=== PATIENT | female | born 1955 | race Caucasian/White ===

== ENCOUNTER 2017-04-08 19:37 | Emergency (ER) | payer OTHER ==
[~2017-04-08 19:37] MED LIST: ATOR40TA16 PO; CEPH-460 PO; HYDR-3583 PO; LEVO175T2 PO; MICO2CRE34 TOPICAL; MUPI2%T TOPICAL; PHENO60 PO; SPIR50TA PO; TIMO0.5S30 EACH EYE; WARF-22 PO
[2017-04-08 19:43] VITALS: PULSE 70; RESP 20; TEMP 97.6; O2SAT 100
[2017-04-08] MEDS ORDERED: CLIN1CAP5 PO (20:12)
--- NOTE | 2017-04-08 20:12 | PD ---
HPI Chief Complaint: Skin Problem Time Seen by Provider: 19:58 Travel History International Travel<30 days: No Contact w/Intl Traveler<30days: No Traveled to known affect area: No History of Present Illness HPI 61-year-old female complains of pain and swelling and redness right big toe. Patient has history of right big toe toenail fungus infection. Patient states that she started having increasing redness swelling tenderness of the right big toe for the past several days. Patient denies any fever chills. Patient denies any injury to the area. Patient states that she is not up-to-date with TD booster. Patient has history of mechanical mitral valve replacement and on Coumadin. PFSH Past Medical History Hx Anticoagulant Therapy: Yes (WARFARIN) Arthritis: No Asthma: No Blood Disorders: No Anxiety: Yes Depression: Yes Heart Rhythm Problems: No Cancer: Yes (BASAL CELL CARCINOMA LEFT NARES) Cardiovascular Problems: Yes (CHOL) High Cholesterol: No Chemotherapy: No Chest Pain: No Congestive Heart Failure: Yes COPD: No Cerebrovascular Accident: Yes (CVA) Diabetes: No Diminished Hearing: No Endocrine: No Gastrointestinal Disorders: No GERD: No Glaucoma: No Genitourinary: No Headaches: No Hepatitis: No Hiatal Hernia: Yes Hypertension: Yes Immune Disorder: No Musculoskeletal: Yes Neurologic: Yes Psychiatric: Yes Respiratory: No Integumentary: No Myocardial Infarction: No Radiation Therapy: No Renal Failure: No Seizures: Yes Sickle Cell Disease: No Sleep Apnea: No Thyroid Disease: Yes Ulcer: No Menopausal: Yes : 3 Para: 3 Past Surgical History Abdominal Surgery: No AICD: No Cardiac Surgery: Yes (VALVE REPLACEMENT) Ear Surgery: No Endocrine Surgery: No Eye Surgery: No Genitourinary Surgery: Yes (KIDNEY STONES 2002) Gynecologic Surgery: No Neurologic Surgery: No Oral Surgery: No Thoracic Surgery: No Other Surgery: Yes Social History Alcohol Use: No Tobacco Use: No Substance Use: No Allergies-Medications (Allergen,Severity, Reaction): Coded Allergies: Augmentin (Verified Allergy, Severe, 09/16/16) Codeine (Verified Allergy, Severe, Hives, 09/16/16) Erythromycin (Verified Allergy, Intermediate, RASH, 09/16/16) Reported Meds & Prescriptions Reported Meds & Active Scripts Active Bactroban Topical (Mupirocin) 2 % Cream 1 Applic TOPICAL BID Keflex (Cephalexin) 500 Mg Cap 500 Mg PO Q6H 7 Days Miconazole Topical 2% Cream 1 Applic TOPICAL BID 14 Days Reported Timolol Opth Drops 0.5 % Soln 1 Drop EACH EYE BID Hydrocodone-Acetaminophen 10-325 mg Tab 1 Tab PO Q6H PRN Atorvastatin (Atorvastatin Calcium) 40 Mg Tab 40 Mg PO HS Spironolactone 50 Mg Tab 50 Mg PO BIDPC Levothyroxine (Levothyroxine Sodium) 175 Mcg Tab 175 Mcg PO DAILY Phenobarbital 64.8 Mg Tab 64.8 Mg PO BID Warfarin 10 Mg Tab 10 Mg PO DIRECTED Review of Systems General / Constitutional: No: Fever Eyes: No: Visual changes HENT: No: Headaches Cardiovascular: No: Chest Pain or Discomfort Respiratory: No: Shortness of Breath Gastrointestinal: No: Abdominal Pain Genitourinary: No: Dysuria Musculoskeletal: No: Pain Skin: No Rash Neurologic: No: Weakness Psychiatric: No: Depression Endocrine: No: Polydipsia Hematologic/Lymphatic: No: Easy Bruising Physical Exam Narrative GENERAL: Well-nourished, well-developed patient. SKIN: Focused skin assessment warm/dry. HEAD: Normocephalic. EYES: No scleral icterus. No injection or drainage. NECK: Supple, trachea midline. No JVD or lymphadenopathy. CARDIOVASCULAR: Regular rate and rhythm without murmurs, gallops, or rubs. RESPIRATORY: Breath sounds equal bilaterally. No accessory muscle use. GASTROINTESTINAL: Abdomen soft, non-tender, nondistended. MUSCULOSKELETAL: No cyanosis, or edema. BACK: Nontender without obvious deformity. No CVA tenderness. Patient has redness swelling tenderness right big toe. Patient has thickening and uplifting of the right big toe toenail. The toenail is firmly in place. Data Data Last Documented VS Vital Signs Date Time Temp Pulse Resp B/P Pulse Ox O2 Delivery O2 Flow Rate FiO2 04/08/17 19:43 97.6 70 20 100 MDM Medical Decision Making Medical Screen Exam Complete: Yes Emergency Medical Condition: Yes Differential Diagnosis Differential diagnosis including paronychia, cellulitis, abscess. Narrative Course 61-year-old female with redness swelling tenderness right big toe. TD booster given. Clindamycin 300 mg by mouth given. Diagnosis Primary Impression: Cellulitis Qualified Code: L03.031 - Cellulitis of toe of right foot Patient Instructions: General Instructions Additional Instructions: Clindamycin as directed. Check INR frequently while on clindamycin. Follow-up with personal physician. Return if worse. Follow-up with crepe laminator operator. Med/Other Pt SpecificInfo: Prescription(s) given Scripts Clindamycin 150 Mg Cap2 Tab PO Q6H #80 CAP Prov:Ashok Agrawal MD 04/08/17 Disposition: 01 DISCHARGE HOME Condition: Stable Ashok Agrawal MD Apr 08, 2017 20:12
[2017-04-08] MEDS ORDERED: CLINDAMYCIN 150 MG CAP PO ONE (20:15)
[2017-04-08] MEDS ORDERED: TETANUS/DIPHTHERIA TOXOID ADULT 0.5 ML VIAL IM ONE (20:15)
== END 2017-04-08 20:44 | disposition home or self-care (01) ==
LOC: PHED 19:37
DX: L03.031 Cellulitis of right toe (principal); I50.9 Heart failure, unspecified; I10 Essential (primary) hypertension; E07.9 Disorder of thyroid, unspecified; Z86.73 Personal history of transient ischemic attack (TIA), and cerebral infarction without residual deficits; Z95.2 Presence of prosthetic heart valve; Z79.01 Long term (current) use of anticoagulants; Z23 Encounter for immunization
CPT/HCPCS: 90471; 90714

== ENCOUNTER 2017-10-25 13:58 | Emergency (ER) | payer OTHER ==
[~2017-10-25] VITALS: Ht 149.9 cm; Wt 88.0 kg
[~2017-10-25 13:58] MED LIST changes: -CEPH-460 PO; +CLIN150C14 PO; -MICO2CRE34 TOPICAL; -MUPI2%T TOPICAL
[2017-10-25 14:00] VITALS: PULSE 70; RESP 16; TEMP 97.8; O2SAT 98
[2017-10-25] MEDS ORDERED: FERR325T18 PO (14:24)
[2017-10-25] MEDS ORDERED: VITA250T25 PO (14:24)
[2017-10-25] MEDS ORDERED: CHOL400D2 PO (14:24)
[2017-10-25 14:37] VITALS: BP 142/92
--- NOTE | 2017-10-25 14:58 | PD ---
HPI . Chest pain Chief Complaint: Fall Time Seen by Provider: 14:15 Travel History International Travel<30 days: No Contact w/Intl Traveler<30days: No Traveled to known affect area: No History of Present Illness HPI Patient presents with chief complaint of bilateral anterior chest pain since falling forward 5 days ago. States that she tripped over an extension cord and fell on concrete. She comes in complaining with continued pain in her chest which is exacerbated by coughing and breathing. Pain has been unrelieved by her usual [place] which she takes for chronic back pain. She rates the pain 9/ 10. She reports he had bruising to the palms of her hands and her left knee. PFSH Past Medical History Hx Anticoagulant Therapy: Yes (WARFARIN) Arthritis: No Asthma: No Blood Disorders: No Anxiety: Yes Depression: Yes Heart Rhythm Problems: No Cancer: Yes (BASAL CELL CARCINOMA LEFT NARES) Cardiovascular Problems: Yes (CHOL, MECHANICAL MITRAL VALVE REPLACEMENT) High Cholesterol: No Chemotherapy: No Chest Pain: No Congestive Heart Failure: Yes COPD: No Cerebrovascular Accident: Yes (TIA'S) Diabetes: No Diminished Hearing: No Endocrine: No Gastrointestinal Disorders: No GERD: No Glaucoma: No Genitourinary: No Headaches: No Hepatitis: No Hiatal Hernia: Yes Hypertension: Yes Immune Disorder: No Musculoskeletal: Yes Neurologic: Yes Psychiatric: Yes Respiratory: No Integumentary: No Myocardial Infarction: No Radiation Therapy: No Renal Failure: No Seizures: Yes Sickle Cell Disease: No Sleep Apnea: No Thyroid Disease: Yes Ulcer: No Influenza Vaccination: Yes ?: Not Menopausal: Yes : 3 Para: 3 Past Surgical History Abdominal Surgery: Yes (hernia repair ) AICD: No Cardiac Surgery: Yes (VALVE REPLACEMENT) Ear Surgery: No Endocrine Surgery: No Eye Surgery: No Genitourinary Surgery: Yes (KIDNEY STONES 2002) Gynecologic Surgery: No Neurologic Surgery: No Oral Surgery: No Thoracic Surgery: No Other Surgery: Yes Social History Alcohol Use: No Tobacco Use: No Substance Use: No Allergies-Medications (Allergen,Severity, Reaction): Coded Allergies: amoxicillin (Unverified Allergy, Severe, 10/25/17) clavulanic acid (Unverified Allergy, Severe, 10/25/17) codeine (Unverified Allergy, Severe, Hives, 10/25/17) erythromycin base (Unverified Allergy, Intermediate, RASH, 10/25/17) Reported Meds & Prescriptions Reported Meds & Active Scripts Active Reported Ferrous Sulfate 325 Mg (65 Mg Iron) Tablet 325 Mg PO DAILY Vitamin D (Cholecalciferol) 400 Unit/Ml Drops 400 Units PO DAILY Vitamin B-1 (Thiamine HCl) 250 Mg Tab 250 Mg PO DAILY Timolol Opth Drops 0.5 % Soln 1 Drop EACH EYE BID Hydrocodone-Acetaminophen 10-325 mg Tab 1 Tab PO Q6H PRN Atorvastatin (Atorvastatin Calcium) 40 Mg Tab 40 Mg PO HS Spironolactone 50 Mg Tab 50 Mg PO BIDPC Levothyroxine (Levothyroxine Sodium) 175 Mcg Tab 175 Mcg PO DAILY Phenobarbital 64.8 Mg Tab 64.8 Mg PO BID Warfarin 10 Mg Tab 10 Mg PO DIRECTED Review of Systems Except as stated in HPI: all other systems reviewed are Neg Cardiovascular: Positive: Chest Pain or Discomfort Respiratory: No: Shortness of Breath Skin: Positive Change in Pigmentation Physical Exam Narrative GENERAL: Awake and alert and in no acute distress. SKIN: Warm and dry. She does have some bruising on the palms of her hands and on her left knee. The skin is intact. There is no bruising of her breasts or chest wall. HEAD: Normocephalic/atraumatic. EYES: Pupils are equal. Extraocular movements are intact. NECK: Normal range of motion. CARDIOVASCULAR: Regular rate and rhythm. Heart sounds are normal. RESPIRATORY: Nonlabored respirations. Lungs are clear with good air movement throughout. She has diffuse anterior chest tenderness. MUSCULOSKELETAL: Atraumatic. NEUROLOGICAL: Nonfocal. PSYCHIATRIC: Appropriate mood and affect. Data Data Last Documented VS Vital Signs Date Time Temp Pulse Resp B/P (MAP) Pulse Ox O2 Delivery O2 Flow Rate FiO2 10/25/17 14:37 142/92 (109) 10/25/17 14:25 Room Air 10/25/17 14:00 97.8 70 16 98 Orders Orders Chest, Pa & Lat (10/25/17 14:19) MDM Medical Decision Making Medical Screen Exam Complete: Yes Emergency Medical Condition: Yes Differential Diagnosis Differential diagnosis of chest trauma includes but is not limited to superficial abrasions/contusions, rib fracture, pneumothorax, hemothorax, pulmonary contusion, cardiac contusion, ruptured thoracic aorta Narrative Course This patient presents complaining with continued chest discomfort following a fall 5 days ago. She does not have any external signs of injury to her chest such as abrasions or bruising. Her lungs are clear with good air movement throughout. CXR>>Cardiomegaly with clear lungs. Approximate L1 compression deformity. This is age-indeterminate. The chest x-ray was independently viewed by me. Diagnosis Primary Impression: Chest wall contusion Qualified Codes: S20.219A - Contusion of unspecified front wall of thorax, initial encounter Patient Instructions: Contusion in Adults (DC), General Instructions Additional Instructions: Ice or cool compresses may help your pain Disposition: 01 DISCHARGE HOME Condition: Stable Kassy Antonio MD Oct 25, 2017 14:58
--- NOTE | 2017-10-25 15:22 | RADRPT ---
EXAM DATE/TIME: 10/25/2017 14:39 [facility] COMPARISON: No previous studies available for comparison. INDICATIONS : Short of breath MEDICAL HISTORY : Previous lung collapse SURGICAL HISTORY : CABG. ENCOUNTER: Initial ACUITY: 4 - 6 days PAIN SCORE: 9/10 LOCATION: chest FINDINGS: PA and lateral views of the chest show moderate cardiomegaly. Lungs are clear without infiltrate or e ffusion. Median sternotomy wires noted. A compression deformity involving the approximate L1 vertebra l body. CONCLUSION: Cardiomegaly with clear lungs. Approximate L1 compression deformity. This is age-indeterminate. Bowen Mariscal Jr., MD on October 25, 2017 at 15:19 Board Certified Radiologist. This report was verified electronically.
[2017-10-25 15:57] VITALS: BP 155/89
== END 2017-10-25 15:58 | disposition home or self-care (01) ==
LOC: PHED 13:58
DX: S20.219A Contusion of unspecified front wall of thorax, initial encounter (principal); G89.29 Other chronic pain; I11.0 Hypertensive heart disease with heart failure; I50.9 Heart failure, unspecified; W01.0XXA Fall on same level from slipping, tripping and stumbling without subsequent striking against object, initial encounter; F32.9 Major depressive disorder, single episode, unspecified; Z79.01 Long term (current) use of anticoagulants; Z86.73 Personal history of transient ischemic attack (TIA), and cerebral infarction without residual deficits; Z95.2 Presence of prosthetic heart valve
CPT/HCPCS: 71020; 99283

== ENCOUNTER 2018-03-28 13:58 | Emergency (ER) | payer OTHER ==
[~2018-03-28] VITALS: Ht 152.4 cm; Wt 116.0 kg
[~2018-03-28 13:58] MED LIST changes: +CHOL400D2 PO; -CLIN150C14 PO; +FERR325T18 PO; +VITA250T25 PO
[2018-03-28 14:02] VITALS: BP 175/95; PULSE 56; RESP 16; TEMP 98.1; O2SAT 97
[2018-03-28] MEDS ORDERED: SILVER NITR/POTASSIUM NITRATE APPLICATORS TOPICAL ONE (14:30)
--- NOTE | 2018-03-28 14:43 | PD ---
HPI Chief Complaint: Laceration/Skin Injury Time Seen by Provider: 14:14 Travel History International Travel<30 days: No Contact w/Intl Traveler<30days: No Traveled to known affect area: No History of Present Illness HPI 62-year-old female presents emergency department for evaluation of a partially avulsed right toenail that occurred just prior to arrival. Patient states that she was moving a table barefoot when she accidentally caught her toenail resulting in this injury. Patient denies any numbness tingling. Says her pain is moderate, especially with palpation to the area. Patient says she is able to move her toe. Patient takes a blood thinner daily. PFSH Past Medical History Hx Anticoagulant Therapy: Yes (WARFARIN) Arthritis: No Asthma: No Blood Disorders: No Anxiety: Yes Depression: Yes Heart Rhythm Problems: No Cancer: Yes (BASAL CELL CARCINOMA LEFT NARES) Cardiovascular Problems: Yes (CHOL, MECHANICAL MITRAL VALVE REPLACEMENT) High Cholesterol: No Chemotherapy: No Chest Pain: No Congestive Heart Failure: Yes COPD: No Cerebrovascular Accident: Yes (TIA'S) Diabetes: No Diminished Hearing: No Endocrine: No Gastrointestinal Disorders: No GERD: No Glaucoma: No Genitourinary: No Headaches: No Hepatitis: No Hiatal Hernia: Yes Hypertension: Yes Immune Disorder: No Musculoskeletal: Yes Neurologic: Yes Psychiatric: Yes Respiratory: No Integumentary: No Myocardial Infarction: No Radiation Therapy: No Renal Failure: No Seizures: Yes Sickle Cell Disease: No Sleep Apnea: No Thyroid Disease: Yes Ulcer: No ?: Not Menopausal: Yes : 3 Para: 3 Past Surgical History Abdominal Surgery: Yes (hernia repair ) AICD: No Cardiac Surgery: Yes (VALVE REPLACEMENT) Ear Surgery: No Endocrine Surgery: No Eye Surgery: No Genitourinary Surgery: Yes (KIDNEY STONES 2002) Gynecologic Surgery: No Neurologic Surgery: No Oral Surgery: No Thoracic Surgery: No Other Surgery: Yes Social History Alcohol Use: No Tobacco Use: No Substance Use: No Allergies-Medications (Allergen,Severity, Reaction): Coded Allergies: amoxicillin (Unverified Allergy, Severe, 03/28/18) clavulanic acid (Unverified Allergy, Severe, 03/28/18) codeine (Unverified Allergy, Severe, Hives, 03/28/18) erythromycin base (Unverified Allergy, Intermediate, RASH, 5/23/18) Reported Meds & Prescriptions Reported Meds & Active Scripts Active Reported Ferrous Sulfate 325 Mg (65 Mg Iron) Tablet 325 Mg PO DAILY Vitamin D (Cholecalciferol) 400 Unit/Ml Drops 400 Units PO DAILY Vitamin B-1 (Thiamine HCl) 250 Mg Tab 250 Mg PO DAILY Timolol Opth Drops 0.5 % Soln 1 Drop EACH EYE BID Hydrocodone-Acetaminophen 10-325 mg Tab 1 Tab PO Q6H PRN Atorvastatin (Atorvastatin Calcium) 40 Mg Tab 40 Mg PO HS Spironolactone 50 Mg Tab 50 Mg PO BIDPC Levothyroxine (Levothyroxine Sodium) 175 Mcg Tab 175 Mcg PO DAILY Phenobarbital 64.8 Mg Tab 64.8 Mg PO BID Warfarin 10 Mg Tab 10 Mg PO DIRECTED Review of Systems Except as stated in HPI: all other systems reviewed are Neg Physical Exam Narrative GENERAL: Well-nourished, well-developed patient, in NAD SKIN: Focused skin assessment warm/dry. No rashes or lesions. HEAD: Normocephalic. Atraumatic. EYES: No scleral icterus. No injection or drainage. THROAT: Airway is patent. NECK: Supple, trachea midline. No JVD. No meningismus. CARDIOVASCULAR: Regular rate and rhythm without murmurs, gallops, or rubs. RESPIRATORY: Breath sounds equal bilaterally. No accessory muscle use. No wheezes, rales, or rhonchi MUSCULOSKELETAL: No cyanosis, or edema. Right toe-mild ecchymosis to the great toe, full range of motion, tenderness palpation of the MTP. Toenail partially avulsed and displaced laterally. Bleeding controlled. Neurovascularly intact BACK: Nontender without obvious deformity. No CVA tenderness. Data Data Last Documented VS Vital Signs Date Time Temp Pulse Resp B/P (MAP) Pulse Ox O2 Delivery O2 Flow Rate FiO2 03/28/18 14:02 98.1 56 16 175/95 (121) 97 Orders Orders Toe (Min 2vws) (03/28/18 ) Silver Nitrate Applicators (Silver Nitra (03/28/18 14:30) Wound Care (03/28/18 15:23) MDM Medical Decision Making Medical Screen Exam Complete: Yes Emergency Medical Condition: Yes Differential Diagnosis Right great toenail avulsion, laceration, abrasion Narrative Course 62-year-old female presents emergency department for evaluation of a partially avulsed right toenail that occurred just prior to arrival. Patient states that she was moving a table barefoot when she accidentally caught her toenail resulting in this injury. Patient denies any numbness tingling. Says her pain is moderate, especially with palpation to the area. Patient says she is able to move her toe. Patient takes a blood thinner daily. Vital signs are stable. Physical exam findings consistent with a partially avulsed toenail. Toenail removal was performed. Bleeding controlled with silver nitrate sticks. Wound care. Keflex for antibiotic prophylaxis. Patient has chronic pain medication at home. I strongly advised that she follow-up with a dancing teacher within 1 week. Primary care physician within 2-3 days. Advised to avoid excessive activity on the foot. She states understanding will comply. Procedures Procedure Narrative Toenail removal procedure. The right great toe was irrigated and cleansed thoroughly prior to the procedure. The toe was injected with 2% lidocaine without epinephrine with approximately 4 cc. The site was again irrigated and explored for any deep tissue involvement. The toenail was completely removed. Silver nitrate sticks applied to reduce bleeding. The area was dressed. Wound care performed. Diagnosis Primary Impression: Toenail avulsion Qualified Codes: S91.209A - Unspecified open wound of unspecified toe(s) with damage to nail, initial encounter Additional Impression: Toe fracture, right Qualified Codes: S92.424A - Nondisplaced fracture of distal phalanx of right great toe, initial encounter for closed fracture Referrals: Chemistry Tutor Additional Instructions: Follow up with your primary care physician within 2-3 days. I highly recommend you follow-up with a dancing teacher within 1 week. Avoid excessive activity on the toe for at least one week. Keep area clean and dry for 24 hours. After 24 hours, you may bathe as normal but dry the area thoroughly. You may use [id number] triple antibiotic ointments for your injury daily. He may leave the yellow gauze on for 2-3 days. If the gauze becomes dirty or excessively wet, you may remove and apply clean dressing. Change dressings daily. If bleeding starts, apply pressure and elevate the area. If you developed increased redness, swelling, or pain return to the emergency department as this could be a sign of infection. Take all medications as prescribed. Disposition: 01 DISCHARGE HOME Condition: Stable Hayley Duffy March 28, 2018 14:43
--- NOTE | 2018-03-28 14:48 | RADRPT ---
EXAM DATE: 03/28/2018 2:41 PM EDT AGE/SEX: 62 years / Female INDICATIONS: Right great toe pain post rolling a table over toe CLINICAL DATA: This is the patient's initial encounter. Patient reports that signs and symptoms have been present for 1 day and indicates a pain score of 10/10. MEDICAL/SURGICAL HISTORY: None. None. COMPARISON: No prior [facility] exams available for comparison. FINDINGS: Prominent soft tissue swelling of the great toe. There is disruption of the nail. Subtle lucency in t he distal tuft concerning for nondisplaced fracture . Remaining osseous structures are intact. Joints are intact without dislocation or significant arthropathy. Osseous density is normal. No radiopaqu e foreign bodies seen. CONCLUSION: 1. Suspect subtle nondisplaced fracture of the distal tuft. Electronically signed by: Manolo Felipe MD 03/28/2018 2:47 PM EDT
[2018-03-28] MEDS ORDERED: CEPH-460 PO (15:27)
== END 2018-03-28 15:53 | disposition home or self-care (01) ==
LOC: PHEFT 13:58
DX: S91.209A Unspecified open wound of unspecified toe(s) with damage to nail, initial encounter (principal); S92.424A Nondisplaced fracture of distal phalanx of right great toe, initial encounter for closed fracture; I11.0 Hypertensive heart disease with heart failure; I50.9 Heart failure, unspecified; F32.9 Major depressive disorder, single episode, unspecified; W22.03XA Walked into furniture, initial encounter; Z79.01 Long term (current) use of anticoagulants; Z86.73 Personal history of transient ischemic attack (TIA), and cerebral infarction without residual deficits; Z95.2 Presence of prosthetic heart valve; Z88.0 Allergy status to penicillin; Z88.1 Allergy status to other antibiotic agents; Z88.5 Allergy status to narcotic agent; Z85.828 Personal history of other malignant neoplasm of skin
CPT/HCPCS: 11730; 11750; 73660